=== PATIENT | female | born 1955 | race Caucasian/White ===

== ENCOUNTER 2021-07-27 11:12 | Emergency (ER) | payer MEDICARE, OTHER ==
[2021-07-27 12:00] LABS: RED BLOOD COUNT 4.39 M/UL (4.00-5.10); WHITE BLOOD COUNT 5.9 K/UL (4.5-11.0)
[2021-07-27 12:25] LABS: BUN/CREATININE RATIO 13 (0-10)
[2021-07-27] MEDS ORDERED: ZITHROMAX250 MG PO (14:43)
[2021-07-27] MEDS ORDERED: AUGMENTIN 875-1 EACH PO (14:43)
[2021-07-27] MEDS ORDERED: LEVOFLOXACIN750 MG PO (15:07)
== END 2021-07-27 15:55 | disposition home or self-care (01) ==
LOC: ER1 11:12
PROVIDERS: Nurse Practitioner
DX: J44.9 Chronic obstructive pulmonary disease, unspecified (principal); R91.8 Other nonspecific abnormal finding of lung field; Z20.822 Contact with and (suspected) exposure to COVID-19; R51.9 Headache, unspecified; N17.9 Acute kidney failure, unspecified; E11.9 Type 2 diabetes mellitus without complications; I10 Essential (primary) hypertension; Z88.0 Allergy status to penicillin; Z88.5 Allergy status to narcotic agent; Z79.01 Long term (current) use of anticoagulants
CPT/HCPCS: 0240U; 71045; 80048; 81001; 82550; 82553; 82803; 83874; 84484; 85025; 85610; 85652; 85730; 86140; 93005; 99283